=== PATIENT | male | born 1970 | race Caucasian/White ===

== ENCOUNTER 2021-10-08 07:22 | Day surgery (SDC) | payer OTHER ==
[~2021-10-08 07:22] MED LIST: Midazolam 1 MG/ML 2 ML SDV ONE; Propofol 200 MG/20 ML SDV ONE; fentaNYL 100 MCG/2 ML SDV ONE
[2021-10-08] MEDS ORDERED: Sodium Chloride 0.9% 1,000 ML IV SCH (07:45)
[2021-10-08 11:27] VITALS: BP 104/74; PULSE 84
== END 2021-10-08 11:43 | disposition home or self-care (01) ==
LOC: JP.SDS 07:22
PROVIDERS: ATTEND Surgery
DX: Z12.11 Encounter for screening for malignant neoplasm of colon (principal); E66.9 Obesity, unspecified; Z68.32 Body mass index [BMI] 32.0-32.9, adult
CPT/HCPCS: J2250; J2704; J3010; J7030

== ENCOUNTER 2025-04-27 12:37 | Emergency (ER) | payer OTHER ==
[2025-04-27 13:03] VITALS: BP 152/91; PULSE 83
[2025-04-27 13:03] LABS: BASOPHILS ABSOLUTE AUTO 0.04 K/uL (0.00-0.10); BASOPHILS PERCENT AUTO 0.8 % (0.1-1.3); EOSINOPHILS ABSOLUTE AUTO 0.19 K/uL (0.00-0.40); EOSINOPHILS PERCENT AUTO 3.6 % (0.0-5.4); IMMATURE GRAN PERCENT AUTO 0.2 % (0.0-0.7); LYMPHOCYTES ABSOLUTE AUTO 1.43 K/uL (0.8-3.3); LYMPHOCYTES PERCENT AUTO 27.2 % (11.4-47.7); MONOCYTES ABSOLUTE AUTO 0.66 K/uL (0.20-0.90); MONOCYTES PERCENT AUTO 12.5 % (3.3-12.6); NEUTROPHILS ABSOLUTE AUTO 2.93 K/uL (1.0-7.6); NEUTROPHILS PERCENT AUTO 55.7 % (40.0-78.1); PLATELET COUNT,PLT 222 K/uL (130-375); RED BLOOD CELL COUNT 5.23 M/uL (4.14-5.76); WHITE BLOOD CELL COUNT,WBC 5.3 K/uL (3.2-11.0)
[2025-04-27 13:04] LABS: IMMATURE GRAN ABSOLUTE AUTO 0.01 K/uL (0.00-0.23)
[2025-04-27] MEDS: Nitroglycerin 0.4 MG Tab.SL SL ONE (13:05)
[2025-04-27 13:27] LABS: A/G RATIO 1.2 (1.2-2.2); ALANINE AMINOTRANSFERASE,ALT 46 U/L (12-78); ASPARTATE AMNIOTRANSFERASE,AST 36 U/L (15-37); BILIRUBIN TOTAL 0.5 mg/dL (0.2-1.0); BLOOD UREA NITROGEN,BUN 13 mg/dL (7-18); CARBON DIOXIDE,CO2 27 mmol/L (21-32); CHLORIDE,CL 104 mmol/L (100-108); CREATININE 0.8 mg/dL (0.8-1.3); EST CRCL DRUG DOSING (CG) 87.36 mL/min; ESTIMATED GFR 105 mL/min (>60); GLUCOSE RANDOM 130 mg/dL (74-106); POTASSIUM,K 3.9 mmol/L (3.6-5.2); PROTEIN TOTAL,TP 7.3 g/dL (6.4-8.2); SODIUM,NA 138 mmol/L (140-148); TROPONIN I HIGH SENSITIVITY 5.2 pg/mL (<=60.3)
[2025-04-27] MEDS: fentaNYL 50 MCG/ML SDV IV ONE (13:33)
[2025-04-27] MEDS: Alum Hydrox/Mag Hydrox/Simeth 15 ML, Lidocaine 2% 15 ML PO ONE (14:09)
== END 2025-04-27 14:53 | disposition home or self-care (01) ==
LOC: JP.ED 12:37
DX: K20.90 Esophagitis, unspecified without bleeding (principal); E66.9 Obesity, unspecified; Z79.899 Other long term (current) drug therapy; Z68.33 Body mass index [BMI] 33.0-33.9, adult
CPT/HCPCS: 36415; 71046; 80053; 84484; 85025; 93005; 96374; 99285; A9270; J3010; J3490